=== PATIENT | female | born 1950 | race Caucasian/White ===

== ENCOUNTER 2019-05-23 21:28 | Emergency (ER) | END 2019-05-23 22:25 | disposition home or self-care (01) | DX: S60.222A Contusion of left hand, initial encounter (principal); S50.01XA Contusion of right elbow, initial encounter; W01.0XXA Fall on same level from slipping, tripping and stumbling without subsequent striking against object, initial encounter; Y93.89 Activity, other specified; Y92.89 Other specified places as the place of occurrence of the external cause; Y99.8 Other external cause status ==

== ENCOUNTER 2025-05-02 08:26 | Emergency (ER) | payer MEDICARE, BC ==
[~2025-05-02] VITALS: Ht 175.3 cm; Wt 83.9 kg
[2025-05-02 08:28] VITALS: BP 179/79
[2025-05-02 09:52] LABS: PLATELET COUNT (AUTO) 269 K/uL (179-408); RED BLOOD CELL COUNT(AUTO) 4.42 MIL/uL (3.63-4.92); RED CELL DISTRIBUTION WIDTH 13.6 % (12.3-17.7); WHITE BLOOD COUNT (AUTO) 9.4 K/uL (3.8-11.8)
[2025-05-02 10:01] LABS: CREATININE 0.8 mg/dL (0.6-1.3); SODIUM SERUM 145 mmol/L (136-145); UREA NITROGEN, BLOOD 14 mg/dL (7-18)
[2025-05-02 10:06] LABS: ASPARTATE AMINOTRANSFERASE 18 U/L (15-37); TOTAL PROTEIN, SERUM 7.3 g/dL (6.4-8.2)
[2025-05-02] MEDS ORDERED: HYDR-3972 PO (10:47)
[2025-05-02] MEDS ORDERED: NABU-140 PO (10:47)
[2025-05-02 11:15] VITALS: BP 155/79; TEMP 208.2; O2SAT 96
== END 2025-05-02 10:30 | disposition home or self-care (01) ==
LOC: ER 08:26
DX: S16.1XXA Strain of muscle, fascia and tendon at neck level, initial encounter (principal); I51.9 Heart disease, unspecified; R06.02 Shortness of breath; E78.00 Pure hypercholesterolemia, unspecified; Z79.82 Long term (current) use of aspirin; Z85.3 Personal history of malignant neoplasm of breast; Z92.21 Personal history of antineoplastic chemotherapy; X58.XXXA Exposure to other specified factors, initial encounter; Y93.89 Activity, other specified; Y92.89 Other specified places as the place of occurrence of the external cause; Y99.9 Unspecified external cause status
CPT/HCPCS: 36415; 71045; 73020; 84484; 85025; 85651; 85730; A4606; A4663